=== PATIENT | male | born 1990 | race Caucasian/White ===

== ENCOUNTER 2019-02-18 23:04 | Emergency (ER) | payer OTHER ==
[~2019-02-18] VITALS: Ht 180.3 cm; Wt 61.2 kg
[2019-02-18 23:15] VITALS: BP 113/62
[2019-02-19] MEDS ORDERED: IBUPROFEN 800800 M1 PO (00:08)
== END 2019-02-19 00:17 | disposition home or self-care (01) ==
LOC: M.ERS 23:04
DX: S46.811A Strain of other muscles, fascia and tendons at shoulder and upper arm level, right arm, initial encounter (principal); W18.39XA Other fall on same level, initial encounter; Y93.89 Activity, other specified; Y92.89 Other specified places as the place of occurrence of the external cause; Y99.8 Other external cause status

== ENCOUNTER 2019-09-13 19:37 | Emergency (ER) | payer OTHER ==
[~2019-09-13] VITALS: Ht 180.3 cm; Wt 65.8 kg
[~2019-09-13 19:37] MED LIST: IBUPROFEN 800800 M1 PO
[2019-09-13 20:46] LABS: URINE BILIRUBIN NEGATIVE (Negative); URINE BLOOD TRACE (Negative); URINE CLARITY CLEAR; URINE COLOR YELLOW; URINE GLUCOSE-RANDOM NEGATIVE (Negative); URINE KETONES NEGATIVE (Negative); URINE LEUKOCYTES-REFLEX NEGATIVE (Negative); URINE NITRITE-REFLEX NEGATIVE (Negative); URINE PROTEIN NEGATIVE (Negative); URINE UROBILINOGEN 0.2 E.U./dl (0.2-1.0)
[2019-09-13 20:56] LABS: ABSOLUTE BASOPHILS 0.1 thou/uL (0.0-0.2); ABSOLUTE EOSINOPHILS 0.6 thou/uL (0.0-0.7); ABSOLUTE MONOCYTES 0.6 thou/uL (0.0-1.2); ABSOLUTE NEUTROPHILS 6.4 thou/uL (1.6-8.1); BASOPHILS 0.9 %; EOSINOPHILS 5.8 %; HEMOGLOBIN 15.2 gm/dL (14.0-18.0); LYMPHOCYTES 20.5 %; MCH 30.2 pg (26.0-34.0); MCHC 34.6 g/dL (28.0-37.0); MCV 87.3 fL (80.0-100.0); MONOCYTES 6.2 %; MPV 11.3 fl. (7.2-11.1); NUCLEATED RBCS 0 /100WBC; PLATELET COUNT* 188 thou/uL (150-400); POLYS 66.6 %; RBC 5.04 mil/uL (4.50-6.00); RDW-CV 13.4 % (10.5-14.5); WBC 9.7 thou/uL (4.0-11.0)
[2019-09-13 21:01] LABS: AMP/METHAMP Negative (Negative); BARBITURATES Negative (Negative); BENZODIAZEPINES Negative (Negative); COCAINE Negative (Negative); METHADONE Negative (Negative); OPIATES Negative (Negative); PCP Negative (Negative); THC Negative (Negative)
[2019-09-13 21:03] LABS: CALCIUM 8.8 mg/dL (8.5-10.1); CREATININE 1.1 mg/dL (0.6-1.3)
[2019-09-13 21:08] LABS: ALBUMIN 4.1 g/dL (3.4-5.0); TOTAL BILIRUBIN 0.4 mg/dL (<0.1-1.0); TOTAL PROTEIN 7.9 g/dL (6.4-8.2)
[2019-09-13] MEDS ORDERED: NAPROSYN500 MG PO (22:05)
[2019-09-13 22:27] VITALS: BP 121/70
[2019-09-18] MEDS ORDERED: TYLENOL WITH CO1 TA1 PO (04:32)
== END 2019-09-13 22:28 | disposition home or self-care (01) ==
LOC: M.ERS 19:37
PROVIDERS: Personal Emergency Response Attendant
DX: S06.0X0A Concussion without loss of consciousness, initial encounter (principal); S32.028A Other fracture of second lumbar vertebra, initial encounter for closed fracture; S13.8XXA Sprain of joints and ligaments of other parts of neck, initial encounter; S00.11XA Contusion of right eyelid and periocular area, initial encounter; S00.81XA Abrasion of other part of head, initial encounter; V89.2XXA Person injured in unspecified motor-vehicle accident, traffic, initial encounter; Y93.89 Activity, other specified; Y92.89 Other specified places as the place of occurrence of the external cause; Y99.8 Other external cause status